=== PATIENT | male | born 1985 | race Caucasian/White ===

== ENCOUNTER 2022-07-08 09:06 | Outpatient (CLI) | payer BC, SELFPAY ==
--- NOTE | ~2022-07-08 | US_ITS ---
US abdomen limited INDICATION: Status post cholecystectomy. Evaluate for common duct stone. PROCEDURE: Realtime right upper abdominal ultrasound. COMPARISON: No prior studies for comparison. FINDINGS: The pancreas is obscured by bowel gas. Liver echotexture is normal without focal mass or i ntrahepatic biliary dilatation. There is normal directional flow in the portal vein. Gallbladder is surgically absent. Common bile duct measures 4 mm. No sonographic Akers's sign. IMPRESSION: 1: Unremarkable limited abdominal ultrasound post cholecystectomy. Reviewed, dictated and finalized at location A. [employer]
== END 2022-07-08 09:07 | disposition home or self-care (01) ==
PROVIDERS: PCP Family Medicine; Visit Provider Family Medicine
DX: R10.11 Right upper quadrant pain (principal)
CPT/HCPCS: 76705

== ENCOUNTER 2022-08-13 00:25 | Day surgery (SDC) | payer BC, SELFPAY ==
[2022-07-30 14:40] VITALS: BMI 29.7
[2022-08-13 09:52] VITALS: BP 127/86; PULSE 83; RESP 16; TEMP 36.2; O2SAT 100; BMI 33.0
[2022-08-13] MEDS: LACTATED RINGERS 1,000 ML 150 ML IV CONT (10:01)
--- NOTE | 2022-08-13 10:31 | P.PNAN_ITS ---
Anes - Initial Pre Proc Eval Procedure: Operation Date: 08/13/22 11:00 Proposed Procedures p Esophagogastroduodenoscopy - Rafael Parekh MD Date/Time: 08/13/22 10:31 Surgeon: Rafael Parekh MD Pre Op Diagnosis: RUQP Patient Data Age: 36 Gender: M Height: 1.85 m Weight: 113.7 kg Last Vital Signs Temp 97.2 F L 08/13/22 09:52 Pulse 83 08/13/22 09:52 Resp 16 08/13/22 09:52 BP 127/86 08/13/22 09:52 Pulse Ox 100 08/13/22 09:52 O2 Del Method Room Air 08/13/22 09:52 Allergies Allergy/AdvReac Type Severity Reaction Status Date / Time No Known Allergies Allergy Verified 08/13/22 09:51 Home Medications Medication Instructions Recorded Confirmed Type No Home Medications 07/02/22 08/13/22 History Patient hx anesthesia problems: none Family hx anesthesia problems: none Results Review: All pre-operative results and documents have been reviewed as part of the pre- operative evaluation. [facility] Surgical History Surgical History Fracture of metatarsal bone ORIF L 5th MT History of cholecystectomy History of tonsillectomy and adenoidectomy Family History Family History Father Hypertension Sibling Asthma Social History Social History Smoking packs per day: 0.5 Smoking cigarettes per day: 10.0 Smoking status: Current every day smoker Tobacco type: cigarettes and e-cigarettes/vaping Alcohol intake: current Drinks per week: 3 Substance use: never Substance use type: does not use Living arrangements: with family Occupation/Education: occupation Gender identity (if verbalized by the patient): Male Sexual Orientation (if Verbalized by the Patient): Straight or Heterosexual Spiritual care concerns: No Anes - Eval Final PreProcedure Day of Procedure 08/13/22 10:31 Patient weight: obese Heart: regular rate and rhythm Lungs: clear to auscultation Airway: Mallampati scale class II Neurological: alert and oriented Last oral intake: >/= 8 hours ASA classification: II Emergent: no Anesthetic plan: proceed Anesthesia type and monitoring: general GIVS and standard monitoring Results Review: All pre-operative results and documents have been reviewed as part of the pre- operative evaluation. Informed Consent: The patient's anesthetic plan and its attendant risks and benefits were discussed with the patient/family/POA. Questions were solicited and answers provided to the satisfaction of the patient/family/POA.
--- NOTE | 2022-08-13 11:07 | PM.HPGS ---
History of Present Illness History of Present Illness Consent: Risks, benefits, and alternatives have been discussed and questions answered. Patient agrees to proceed with procedure. Chief complaint: RUQP Narrative: Jose Shea is a 36 year old male with intermittent ruq, ultrasound normal, GB removed 2 years ago, never had egd, denies gerd Review of Systems Constitutional: Constitutional: Denies headache(s) and Denies weakness Eyes: Eyes: Denies blurry vision ENT: Reports Normal hearing present, Denies headache(s) and Denies neck pain Cardiovascular: Cardiovascular: Denies chest pain and Denies dyspnea Respiratory: Respiratory: Denies dyspnea Gastrointestinal: Gastrointestinal: Reports no additional gastrointestinal complaints Genitourinary: Genitourinary: Denies dysuria Musculoskeletal: Musculoskeletal: Denies neck pain Integumentary/Breasts: Skin/Breast: Denies dry skin Neurologic: Reports Normal hearing present, Denies headache(s) and Denies weakness Psychiatric: Psychiatric: Denies anxiety Endocrine: Endocrine: Denies change in body appearance Hematologic/Lymphatic: Hematologic/Lymphatic: Denies easy bleeding Allergic/Immunologic: Allergic/Immunologic: Denies urticaria PMFSH Past Medical History Medical History (Updated 08/13/22 @ 11:08 by Rafael Parekh MD) RUQ pain Surgical History Surgical History Fracture of metatarsal bone ORIF L 5th MT History of cholecystectomy History of tonsillectomy and adenoidectomy Family History Family History Father Hypertension Sibling Asthma Social History Social History Smoking packs per day: 0.5 Smoking cigarettes per day: 10.0 Smoking status: Current every day smoker Tobacco type: cigarettes and e-cigarettes/vaping Alcohol intake: current Drinks per week: 3 Substance use: never Substance use type: does not use Living arrangements: with family Occupation/Education: occupation Gender identity (if verbalized by the patient): Male Sexual Orientation (if Verbalized by the Patient): Straight or Heterosexual Spiritual care concerns: No Meds Home Medications and Allergies Home Medications Medication Instructions Recorded Confirmed Type No Home Medications 07/02/22 08/13/22 History Allergies Allergy/AdvReac Type Severity Reaction Status Date / Time No Known Allergies Allergy Verified 08/13/22 09:51 Vital Signs Vital Signs - 24 hr 08/13/22 09:52 Temperature 97.2 F L Pulse Rate 83 Respiratory Rate 16 Blood Pressure 127/86 Pulse Oximetry 100 Oxygen Delivery Room Air Exam Const: General: comfortable and no acute distress HENMT: Face/Nose/Sinus: Normal nares present Eyes: General: appearance normal, both eyes and all related structures Neck: Neck: no JVD Resp: Auscultation: clear to auscultation bilaterally Cardio: Rate: regular rate Rhythm: regular rhythm GI: Inspection: non-distended GI Palp: Yes Soft to palpation Skin: General skin exam: normal color Neuro: General: gait normal Speech: normal speech Extrem: General: normal to inspection Psych: Mental Status: mental status grossly normal Assessment and Plan Assessment and plan (1) RUQ pain: Code(s): R10.11 - Right upper quadrant pain Status: Acute Assessment and Plan: egd with bx
[2022-08-13 11:25] VITALS: BP 108/67; PULSE 73; RESP 21; O2SAT 97
[2022-08-13 11:35] VITALS: BP 119/78; PULSE 79; RESP 25; O2SAT 100
[2022-08-13 11:45] VITALS: BP 127/84; PULSE 70; RESP 16; O2SAT 100
== END 2022-08-13 11:55 | disposition home or self-care (01) ==
PROVIDERS: PCP Family Medicine; Visit Provider Internal Medicine Gastroenterology
PROC: 0DJ08ZZ Inspection of Upper Intestinal Tract, Via Natural or Artificial Opening Endoscopic (ICD-10-PCS; CPT 43235; principal; 2022-08-13 11:00)
DX: K29.50 Unspecified chronic gastritis without bleeding (principal); Z90.49 Acquired absence of other specified parts of digestive tract; F17.290 Nicotine dependence, other tobacco product, uncomplicated; F17.210 Nicotine dependence, cigarettes, uncomplicated; E66.9 Obesity, unspecified; Z68.33 Body mass index [BMI] 33.0-33.9, adult
CPT/HCPCS: 43239; 88305; J2704; J7120